=== PATIENT | female | born 1975 | race Caucasian/White ===

== ENCOUNTER 2016-06-24 17:58 | Inpatient (IN) | payer OTHER ==
[~2016-06-24] VITALS: Ht 149.9 cm; Wt 65.5 kg
[2016-06-24] MEDS ORDERED: DELTASONE20 M1 PO (19:26)
[2016-06-24] MEDS ORDERED: IBUPROFEN800 MG PO (19:26)
[2016-06-24] MEDS ORDERED: LISINOPRIL10 MG PO (19:26)
[2016-06-24] MEDS ORDERED: VITAMIN D31000 UNIT PO (19:26)
[2016-06-24] MEDS ORDERED: IVIG (19:28)
[2016-06-24 19:35] LABS: INFLUENZA A VIRAL ANTIGEN POSITIVE; INFLUENZA B VIRAL ANTIGEN NEGATIVE
[2016-06-24 22:30] VITALS: BP 111/67
[2016-06-24 22:38] LABS: POINT-OF-CARE METER ID UU13113781
[2016-06-24 23:55] VITALS: BP 128/81
[2016-06-25 04:00] VITALS: BP 119/74
[2016-06-25 07:17] VITALS: BP 120/75
[2016-06-25 08:14] LABS: GFR ESTIMATE (CALCULATED) > 59 mL/min/
[2016-06-25 11:17] VITALS: BP 113/66
[2016-06-25 16:00] VITALS: BP 114/72
[2016-06-25 21:50] VITALS: BP 130/86
[2016-06-26 00:58] VITALS: BP 114/70
[2016-06-26 05:30] VITALS: BP 121/82
[2016-06-26 08:21] VITALS: BP 118/84
[2016-06-26] MEDS ORDERED: OSELTAMIVIR PHO75 MG PO (09:35)
== END 2016-06-26 10:56 | disposition home or self-care (01) | DRG 56 ==
LOC: EME 17:58 → EDOF 21:01 → 4EAST 21:01
PROVIDERS: Emergency Medicine; Family Medicine
DX: G70.01 Myasthenia gravis with (acute) exacerbation (principal); J10.1 Influenza due to other identified influenza virus with other respiratory manifestations; J96.01 Acute respiratory failure with hypoxia; I10 Essential (primary) hypertension; G47.33 Obstructive sleep apnea (adult) (pediatric); Z79.52 Long term (current) use of systemic steroids
CPT/HCPCS: 82565; 82948; 87502; 94799; 99281; 99285; J1566; J2930; J7512